=== PATIENT | female | born 1995 | race Caucasian/White ===

== ENCOUNTER → 2017-08-05 | Outpatient (CLI) | payer MEDICAID | LOC: OD 17:38 | PROVIDERS: ATTEND Physician Assistant | DX: R10.2 Pelvic and perineal pain (principal) | CPT/HCPCS: 36415; 84702 ==

== ENCOUNTER 2018-07-07 20:53 | Emergency (ER) | payer MEDICAID ==
[2018-07-07 21:02] VITALS: BP 138/83
== END 2018-07-07 23:25 | disposition left against medical advice (07) ==
LOC: ER 20:53
DX: Z53.21 Procedure and treatment not carried out due to patient leaving prior to being seen by health care provider (principal)

== ENCOUNTER 2018-07-10 18:42 | Emergency (ER) | payer SELFPAY ==
--- NOTE | 2018-07-10 21:19 | ER Document Report ---
ED General - General Chief Complaint: Sore Throat Stated Complaint: SORE THROAT, EAR PAIN Time Seen by Provider: 07/10/18 20:40 Notes: Patient presents with 1 week of sore throat in the absence of any fevers chills. She has had a dry cough. She denies having problems swallowing no problems breathing and no chest pain. No known medical problems other than she states she may be prediabetic and she has a history of hypertension. No nausea vomiting or diarrhea TRAVEL OUTSIDE OF THE [place] IN LAST 30 DAYS: No - Related Data Allergies/Adverse Reactions: No Known Allergies Allergy (Verified 07/10/18 22:25) Past Medical History - Social History Smoking Status: Unknown if Ever Smoked Family History: Reviewed & Not Pertinent Neurological Medical History: Reports: Hx Migraine Psychiatric Medical History: Reports: Hx Anxiety, Hx Depression Past Surgical History: Reports: Hx Oral Surgery - Immunizations Immunizations up to date: Yes Hx Diphtheria, Pertussis, Tetanus Vaccination: Yes Review of Systems - Review of Systems Constitutional: No symptoms reported EENT: See HPI Cardiovascular: No symptoms reported Respiratory: No symptoms reported Gastrointestinal: No symptoms reported Genitourinary: No symptoms reported Female Genitourinary: No symptoms reported Musculoskeletal: No symptoms reported Skin: No symptoms reported Hematologic/Lymphatic: No symptoms reported Neurological/Psychological: No symptoms reported Physical Exam - Vital signs Vitals: Temp Pulse Resp BP Pulse Ox 98.9 F 81 16 128/81 H 99 07/10/18 19:34 07/10/18 19:34 07/10/18 19:34 07/10/18 19:34 07/10/18 19:34 - General General appearance: Appears well, Alert - HEENT Head: Normocephalic - impacted cerumen b/l external auditory canals, Atraumatic - No cervical lymphadenopathy mild erythema of posterior oropharynx with no bulging and no evidence of peritonsillar abscess or uvula or tonsillar swelling. - Respiratory Respiratory status: No respiratory distress Chest status: Nontender Breath sounds: Normal. No: Rales, Stridor, Wheezing Chest palpation: Normal - Cardiovascular Rhythm: Regular Heart sounds: Normal auscultation Murmur: No - Abdominal Inspection: Normal Distension: No distension Bowel sounds: Normal - Extremities General upper extremity: Normal inspection - Neurological Neuro grossly intact: Yes Cognition: Normal Course - Re-evaluation Re-evalutation: 07/10/18 22:02 Negative strep test patient has been having symptoms for a week I feel like her symptoms are more related to seasonal allergies. Will provide Decadron shot and also provide nasal astatine. 07/10/18 22:04 Also provide Debrox for cerumen disimpaction at home. - Vital Signs Vital signs: Temp Pulse Resp BP Pulse Ox 98.1 F 81 17 125/89 H 100 07/10/18 22:24 07/10/18 22:24 07/10/18 22:24 07/10/18 22:24 07/10/18 22:24 Discharge - Discharge Clinical Impression: Impacted cerumen of both ears Upper respiratory infection Qualifiers: URI type: unspecified URI Qualified Code(s): J06.9 - Acute upper respiratory infection, unspecified Condition: Good Disposition: HOME, SELF-CARE Instructions: Upper Respiratory Illness ([facility]) Prescriptions: Azelastine HCl 205.5 mcg NS BID PRN #1 bottle PRN Reason: Referrals: BONY GOLDSMITH PA-C [Primary Care Provider] - Follow up as needed
[2018-07-10] MEDS ORDERED: DEXAMETHASONE SOD PHOSPHATE INJ 4 MG/1 ML VIAL IV ONE (21:49)
[2018-07-10 22:25] VITALS: BP 125/89
[2018-07-11] MEDS ORDERED: CARBAMIDE PEROXIDE 6.5% OTIC SOLN 15 ML AU SCH (08:00)
== END 2018-07-10 22:26 | disposition home or self-care (01) ==
LOC: ER 18:42
DX: J02.9 Acute pharyngitis, unspecified (principal); H61.23 Impacted cerumen, bilateral; R05 Cough; I10 Essential (primary) hypertension
CPT/HCPCS: 99283; 96374; 87070; 87880; J1100

== ENCOUNTER 2019-01-18 15:29 | Emergency (ER) | payer SELFPAY ==
--- NOTE | 2019-01-18 18:25 | RADIOLOGY REPORT (SQ) ---
EXAM DESCRIPTION: CHEST 2 VIEWS COMPLETED DATE/TIME: 01/18/2019 6:12 pm REASON FOR STUDY: cough congestion COMPARISON: 05/30/2016 TECHNIQUE: Frontal and lateral radiographic views of the chest acquired. NUMBER OF VIEWS: Two view. LIMITATIONS: None. FINDINGS: LUNGS AND PLEURA: No pneumothorax. No consolidation or pleural effusion. MEDIASTINUM AND HILAR STRUCTURES: Stable. HEART AND VASCULAR STRUCTURES: Stable. BONES: No acute findings. HARDWARE: None in the chest. OTHER: No other significant finding. IMPRESSION: NO ACUTE FINDINGS. TECHNICAL DOCUMENTATION: JOB ID: [id number] [id number] 2010 [employer]- All Rights Reserved Reading location - IP/workstation name: [email or web address]
--- NOTE | 2019-01-18 18:34 | ER Document Report ---
ED Respiratory Problem - General Chief Complaint: Cough, Sinus pain Stated Complaint: DIFFICULTY BREATHING Time Seen by Provider: 01/18/19 17:20 Primary Care Provider: BONY GOLDSMITH PA-C [Primary Care Provider] - Follow up as needed Mode of Arrival: Ambulatory Information source: Patient Notes: 23-year-old female presented to ED for complaint of painful cough cold co ngestion shortness of breath with runny nose times 2 weeks. She states she got better then got worse. She has been taken [id number] medications with no improvement. She states that her chest pain increased today. Patient is alert oriented respirations regular and unlabored speaking in full sentences walks with a even steady gait. Her pulse was 86 when I examined her. TRAVEL OUTSIDE OF THE [place] IN LAST 30 DAYS: No - HPI Patient complains to provider of: COPD, Short of breath Onset: Other - She had it for couple weeks and then got better now she Duration: Intermittent episodes Initiating Event: URI Quality of pain: Achy Severity: Moderate Pain Level: 3 Context: Smoker Cough: Nonproductive Sputum amount: None Associated symptoms: Chest pain/discomfort, Congestion, Cough, Fever, PND, Runny nose, Sinus pain/pressure, Sore Throat Similar symptoms previously: Yes Recently seen / treated by doctor: No - Related Data Allergies/Adverse Reactions: No Known Allergies Allergy (Verified 07/10/18 22:25) Past Medical History - General Information source: Patient - Social History Smoking Status: Current Every Day Smoker Cigarette use (# per day): Yes - Half a pack a day Chew tobacco use (# tins/day): No Smoking Education Provided: Yes - 4 minutes Frequency of alcohol use: Occasional Drug Abuse: None Occupation: [employer] Lives with: Parents Family History: Reviewed & Not Pertinent Patient has suicidal ideation: No Patient has homicidal ideation: No - Past Medical History Cardiac Medical History: Reports: Hx Hypertension Pulmonary Medical History: Reports: Hx Bronchitis EENT Medical History: Reports: None Neurological Medical History: Reports: Hx Migraine Endocrine Medical History: Comment Only: Hx Diabetes Mellitus Type 2 - high glucose intolerance Renal/ Medical History: Reports: None Malignancy Medical History: Reports: None GI Medical History: Reports: None Musculoskeletal Medical History: Reports None Skin Medical History: Reports None Psychiatric Medical History: Reports: Hx Anxiety, Hx Depression Traumatic Medical History: Reports: None Infectious Medical History: Reports: None Past Surgical History: Reports: Hx Oral Surgery - Immunizations Immunizations up to date: Yes Hx Diphtheria, Pertussis, Tetanus Vaccination: Yes Review of Systems - Review of Systems EENT: Nose congestion, Nose discharge, Sinus pressure, Sinus discharge Cardiovascular: No symptoms reported Respiratory: Cough. denies: Hurts to breathe, Hemoptysis, Short of breath, Sput um, Stridor, Wheezing Gastrointestinal: No symptoms reported Genitourinary: No symptoms reported Female Genitourinary: No symptoms reported Musculoskeletal: No symptoms reported Skin: No symptoms reported Hematologic/Lymphatic: No symptoms reported Neurological/Psychological: No symptoms reported -: Yes All other systems reviewed and negative Physical Exam - Vital signs Vitals: Temp Pulse Resp BP Pulse Ox 99.9 F 112 H 16 136/76 H 98 01/18/19 15:42 01/18/19 15:42 01/18/19 15:42 01/18/19 15:42 01/18/19 15:42 Interpretation: Normal, Hypertensive - 132/72, Tachypneic - 16. No: Tachycardic - 86 - General General appearance: Appears well, Alert - HEENT Head: Normocephalic, Atraumatic Eyes: Normal Pupils: PERRL - Respiratory Respiratory status: No respiratory distress Chest status: Nontender Breath sounds: Normal Chest palpation: Normal - Cardiovascular Rhythm: Regular Heart sounds: Normal auscultation Murmur: No - Abdominal Inspection: Normal Distension: No distension Bowel sounds: Normal Tenderness: Nontender Organomegaly: No organomegaly - Back Back: Normal, Nontender - Extremities General upper extremity: Normal inspection, Nontender, Normal color, Normal ROM, Normal temperature General lower extremity: Normal inspection, Nontender, Normal color, Normal ROM, Normal temperature, Normal weight bearing. No: Nereida's sign - Neurological Neuro grossly intact: Yes Cognition: Normal Orientation: AAOx4 [place] Coma Scale Eye Opening: Spontaneous [place] Coma Scale Verbal: Oriented [place] Coma Scale Motor: Obeys Commands [place] Coma Scale Total: 15 Speech: Normal Motor strength normal: LUE, RUE, LLE, RLE Sensory: Normal - Psychological Associated symptoms: Normal affect, Normal mood - Skin Skin Temperature: Warm Skin Moisture: Dry Skin Color: Normal Course - Vital Signs Vital signs: Temp Pulse Resp BP Pulse Ox 98.7 F 84 15 124/75 99 01/18/19 18:53 01/18/19 18:53 01/18/19 18:53 01/18/19 18:53 01/18/19 18:53 - Diagnostic Test Radiology reviewed: Image reviewed, Reports reviewed Discharge - Discharge Clinical Impression: URI (upper respiratory infection) Qualifiers: URI type: unspecified viral URI Qualified Code(s): J06.9 - Acute upper respiratory infection, unspecified Condition: Stable Disposition: HOME, SELF-CARE Additional Instructions: UPPER RESPIRATORY ILLNESS: You have a viral infection of the respiratory passages -- a "cold." This common infection causes nasal congestion, drainage, and often sore throat and cough. It is highly contagious. The disease usually lasts about 10 to 14 days. There is no "cure" for the viral infection -- it must run its course. If there is a complication, such as bacterial infection in the nose, sinuses, middle ear, or bronchial tubes, antibiotics may be required. The antibiotics won't affect the virus. Drink plenty of fluids. A humidifier may help. An expectorant medication or decongestant may make you more comfortable. Use acetaminophen or ibuprofen for fever or aches. See the doctor if fever persists over two days, if there is any significant worsening of your symptoms, or if you simply fail to improve as expected. DECONGESTANT MEDICATION: A decongestant medicine has been suggested. Often this medicine is combined in the same tablet with an antihistamine or expectorant. This type of medicine is helpful in treating a bad cold or sinus condition, as well as in treatment of the nasal congestion of hay fever. It is not of much benefit for lung infections. Decongestant medicines are related to stimulants. They can cause an increase in blood pressure and heart rate. Persons with heart disease and high blood pressure should not take decongestants without discussing this with the physician. If you develop palpitations, chest pain, headache, or tremors, stop the medicine and consult your physician. COUGH-SUPPRESSANT & EXPECTORANT MEDICATION: You are to use a cough medication as needed for relief of symptoms. This medicine is a combination of an expectorant (to make the mucous thinner and more easily "coughed up") and a cough suppressant (to reduce the frequency of coughing). The cough-suppressant medicine is related to narcotics. You may experience mild nausea and sleepiness. Some patients who are very sensitive to narcotics may have stomach pain from this medicine. Taking the medicine with food reduces these side effects. Do not drive or work with machinery until you know how this medicine affects you. The expectorant should have no side effects. Iodine-containing expectorants (such as organidin) should not be taken by persons with active thyroid disease unless approved by your doctor. Call the doctor if you develop shortness of breath, hives, rash, itching, lightheadedness, or severe nausea and vomiting. USE OF ACETAMINOPHEN (Tylenol): Acetaminophen may be taken for pain relief or fever control. It's much safer than aspirin, offering a wider range of "safe" dosages. It is safe during . Some brand names are Tylenol, Panadol, Datril, Anacin 3, Tempra, and Liquiprin. Acetaminophen can be repeated every four hours. The following are maximum recommended dosages: >89 pounds or adults 650 mg to 900 mg Acetaminophen can be repeated every four hours. Maximum dose not to exceed 4000 mg a day. SMOKING: If you smoke, you should stop smoking. The tar and chemicals in cigarette smoke are harmful. Smoking has been shown to cause: emphysema chronic bronchitis lung cancer mouth and throat cancer stomach and pancreas cancer premature aging defects In addition, smoking increases ear and lung infections in children of smokers. FOLLOW-UP CARE: If you have been referred to a physician for follow-up care, call the physicians office for an appointment as you were instructed or within the next two days. If you experience worsening or a significant change in your symptoms, notify the physician immediately or return to the Emergency Department at any time for re-evaluation. Forms: Elevated Blood Pressure, Smoking Cessation Education, Return to Work Referrals: BONY GOLDSMITH PA-C [Primary Care Provider] - Follow up as needed
[2019-01-18 18:56] VITALS: BP 124/75
== END 2019-01-18 18:56 | disposition home or self-care (01) ==
LOC: ER 15:29
DX: J06.9 Acute upper respiratory infection, unspecified (principal); R05 Cough; R51 Headache; R09.81 Nasal congestion; R06.02 Shortness of breath; R09.89 Other specified symptoms and signs involving the circulatory and respiratory systems; J44.9 Chronic obstructive pulmonary disease, unspecified; R50.9 Fever, unspecified; R09.82 Postnasal drip; F17.210 Nicotine dependence, cigarettes, uncomplicated; I10 Essential (primary) hypertension
CPT/HCPCS: 71046; 99283; 99406

== ENCOUNTER 2019-06-20 08:41 | Emergency (ER) | payer SELFPAY ==
[2019-06-20 08:49] VITALS: BP 124/68
--- NOTE | 2019-06-20 10:11 | ER Document Report ---
HPI - HPI Patient complains to provider of: sore throat Time Seen by Provider: 06/20/19 09:27 Pain Level: 2 Context: Patient is a 23-year-old female presents to the emergency department for sore throat over the last 2 days. Patient's denying any cough, congestion, fevers. Patient is denying any exposure to gonorrhea or chlamydia or recent oral sex. Patient is denying chest pain, shortness of breath, nausea, vomiting, diarrhea, abdominal pain. Patient states she is prediabetic and takes metformin - CONSTITUTIONAL Constitutional: DENIES: Fever, Chills - EENT EENT: REPORTS: Sore Throat. DENIES: Ear Pain, Eye problems - NEURO Neurology: DENIES: Headache, Weakness, Vision blurred, Dizzinesss / Vertigo - CARDIOVASCULAR Cardiovascular: DENIES: Chest pain - RESPIRATORY Respiratory: DENIES: Trouble Breathing, Coughing - GASTROINTESTINAL Gastrointestinal: DENIES: Abdominal Pain, Black / Bloody Stools - URINARY Urinary: DENIES: Dysuria, Urgency, Frequency - REPRODUCTIVE Reproductive: DENIES: : - MUSCULOSKELETAL Musculoskeletal: DENIES: Extremity pain Past Medical History - General Information source: Patient - Social History Smoking Status: Never Smoker Chew tobacco use (# tins/day): No Frequency of alcohol use: Occasional Drug Abuse: None Family History: Reviewed & Not Pertinent Patient has suicidal ideation: No Patient has homicidal ideation: No - Past Medical History Cardiac Medical History: Reports: Hx Hypertension Pulmonary Medical History: Reports: Hx Bronchitis Neurological Medical History: Reports: Hx Migraine Endocrine Medical History: Reports: Hx Diabetes Mellitus Type 1Comment Only: Hx Diabetes Mellitus Type 2 - high glucose intolerance Renal/ Medical History: Denies: Hx Peritoneal Dialysis Psychiatric Medical History: Reports: Hx Anxiety, Hx Depression - anxiety Past Surgical History: Reports: Hx Oral Surgery - wisdom - Immunizations Immunizations up to date: Yes Hx Diphtheria, Pertussis, Tetanus Vaccination: Yes Vertical Provider Document - CONSTITUTIONAL Agree With Documented VS: Yes Notes: GENERAL: Alert, interacts well. No acute distress. HEAD: Normocephalic, atraumatic. EYES: Pupils equal, round, and reactive to light. Extraocular movements intact. ENT: Oral mucosa moist, tongue midline. Nares patent, TM's intact, nonerythematous, nonbulging bilaterally. Pharynx erythematous tonsils +2 and symmetrical, no palatal petechiae or exudate noted. NECK: Full range of motion. Supple. Trachea midline. No lymphadenopathy appreciated LUNGS: Clear to auscultation bilaterally, no wheezes, rales, or rhonchi. No respiratory distress. HEART: Regular rate and rhythm. No murmur ABDOMEN: Soft, non-tender. Non-distended. Bowel sounds present in all 4 quadrants. EXTREMITIES: Moves all 4 extremities spontaneously. No edema, normal radial and dorsalis pedis pulses bilaterally. No cyanosis. BACK: no cervical, thoracic, lumbar midline tenderness. No saddle anesthesia, normal distal neurovascular exam. NEUROLOGICAL: Alert and oriented x3. Normal speech. cranial nerves II through XII grossly intact PSYCH: Normal affect, normal mood. SKIN: Warm, dry, normal turgor. No rashes or lesions noted. - INFECTION CONTROL TRAVEL OUTSIDE OF THE [place] IN LAST 30 DAYS: No Course - Re-evaluation Re-evalutation: 06/20/19 10:09 Laboratory 06/20/19 09:20 Group A Strep Rapid NEGATIVE Discussed sending strep swabs for culture with patient. Discussed use of salt water gargles and [id number] lozenges. Patient states she will take Motrin at home, she is refusing any analgesics in the emergency room. At this time will discharge with return precautions and follow-up recommendations. Verbal discharge instructions given a the bedside and opportunity for questions given. Medication warnings reviewed. Patient is in agreement with this plan and has verbalized understanding of return precautions and the need for primary care follow-up in the next 24-72 hours. This medical record was dictated with voice recognizing software. There may be grammatical, syntax errors that are unintended. - Vital Signs Vital signs: Temp Pulse Resp BP Pulse Ox 97.7 F 66 16 124/68 98 06/20/19 08:48 06/20/19 08:48 06/20/19 08:48 06/20/19 08:48 06/20/19 08:48 Discharge - Discharge Clinical Impression: Sore throat Condition: Stable Disposition: HOME, SELF-CARE Instructions: Sore Throat ([facility]) Additional Instructions: As we discussed your rapid strep test is negative for bacteria. This means it is viral. Please make sure you are taking fijl-[id number] Tylenol Motrin for generalized pain, using salt water gargles and dghw-wip-lafjyjw lozenges. Please also stay well-hydrated. Should your rapid strep culture came back positive the hospital will call you. Please follow-up with your primary care provider in the next 24 to 48 hours. Please return to the emergency room for any further concerns Forms: Return to Work Referrals: BONY GOLDSMITH PA-C [Primary Care Provider] - Follow up as needed
== END 2019-06-20 10:15 | disposition home or self-care (01) ==
LOC: ER 08:41
DX: J02.9 Acute pharyngitis, unspecified (principal); R05 Cough; R50.9 Fever, unspecified; I10 Essential (primary) hypertension; E10.9 Type 1 diabetes mellitus without complications
CPT/HCPCS: 87070; 87880; 99283

== ENCOUNTER → 2020-07-08 | Outpatient (CLI) | payer OTHER ==
[2020-07-08 12:25] LABS: ABSOLUTE EOSINOPHILS # (AUTO) 0.1 10^3/uL (0.0-0.6); ABSOLUTE MONOCYTES (AUTO) 0.3 10^3/uL (0.1-1.4); ABSOLUTE NEUT (AUTO) 2.9 10^3/uL (1.7-8.2); BASOPHILS % (AUTO) 0.4 % (0-2); EOSINOPHILS % (AUTO) 2.7 % (0-6); HEMATOCRIT 39.4 % (36.0-47.0); HEMOGLOBIN 12.9 g/dL (12.0-15.5); LYMPHOCYTES % (AUTO) 37.2 % (13-45); MEAN CORPUSCULAR HEMOGLOBIN 27.8 pg (27.0-33.4); MEAN CORPUSCULAR HGB CONC 32.7 g/dL (32.0-36.0); MEAN CORPUSCULAR VOLUME 85 fl (80-97); MONOCYTES % (AUTO) 5.8 % (3-13); PLATELET COUNT 296 10^3/uL (150-450); RED BLOOD COUNT 4.64 10^6/uL (3.72-5.28); RED CELL DISTRIBUTION WIDTH 13.6 % (11.5-14.0); SEGMENTED NEUTROPHILS % (AUTO) 53.9 % (42-78); TOTAL CELLS COUNTED % (AUTO) 100 %; WHITE BLOOD COUNT 5.4 10^3/uL (4.0-10.5)
[2020-07-08 12:43] LABS: ALBUMIN 4.4 g/dL (3.5-5.0); ALKALINE PHOSPHATASE 67 U/L (38-126); ANION GAP 8 (5-19); ASPARTATE AMINO TRANSFERASE 19 U/L (14-36); BILIRUBIN,TOTAL 0.4 mg/dL (0.2-1.3); BLOOD UREA NITROGEN 9 mg/dL (7-20); CALCIUM 9.4 mg/dL (8.4-10.2); CARBON DIOXIDE 26 mmol/L (22-30); CHLORIDE 106 mmol/L (98-107); CHOLESTEROL 139.98 mg/dL (0-200); GLUCOSE 91 mg/dL (75-110); POTASSIUM 5.3 mmol/L (3.6-5.0); TOTAL PROTEIN 7.3 g/dL (6.3-8.2); TRIGLYCERIDES 42 mg/dL (<150)
[2020-07-08 12:54] LABS: DIRECT LDL 96 mg/dL (<100)
== END ==
LOC: OD 10:54
PROVIDERS: ATTEND Physician Assistant
DX: E88.81 Metabolic syndrome and other insulin resistance (principal); R10.2 Pelvic and perineal pain
CPT/HCPCS: 36415; 80053; 80061; 83036; 83525; 84443; 85025